=== PATIENT | male | born 1990 | race American Indian/Alaskan Native ===

== ENCOUNTER 2017-11-10 11:16 | Day surgery (SDC) | payer MEDICAID ==
[~2017-11-10 11:16] MED LIST: ANCEF/STERILE WATER 2 GM/20 ML IV NR
[2017-11-10] MEDS ORDERED: NACL BACTERIOSTATIC INFILTRATI ONE (11:39)
[2017-11-10] MEDS ORDERED: DILAUDID IV PRN (11:42)
[2017-11-10] MEDS ORDERED: ZOFRAN IV PRN (11:42)
--- NOTE | 2017-11-10 11:42 | Anesthesia Consultation ---
Anesthesia Consult and Med Hx - Airway Anesthetic Teeth Evaluation: Good ROM Head & Neck: Adequate Mental/Hyoid Distance: Adequate Mallampati Class: Class II Intubation Access Assessment: Good - Pulmonary Exam CTA: Yes - Cardiac Exam Cardiac Exam: RRR - Pre-Operative Health Status ASA Pre-Surgery Classification: ASA2 Proposed Anesthetic Plan: General, MAC - Pulmonary Hx Smoking: Yes (since 14 y.o., cigarretts, black and mild, quit 05/2017) - Central Nervous System Hx Psychiatric Problems: Yes - Other Systems Hx Cancer: No
--- NOTE | 2017-11-10 11:42 | Anesthesia Day of Surgery ---
Anesthesia Day of Surgery - Day of Surgery Patient Examined: Yes Patient H&P Reviewed: Yes Patient is NPO: Yes
[2017-11-10] MEDS ORDERED: VERSED IV NR (12:00)
[2017-11-10] MEDS ORDERED: NACL 0.9% 1000 ML 1,000 ML IV SCH (12:00)
[2017-11-10] MEDS ORDERED: SUBLIMAZE ONE (13:11)
[2017-11-10] MEDS ORDERED: DIPRIVAN 10 MG/ML IV ONE ×2 (13:11→13:42)
[2017-11-10] MEDS ORDERED: XYLOCAINE CARDIAC IV ONE (13:14)
[2017-11-10] MEDS ORDERED: XYLOCAINE 1%/ EPI 1:100,000 INFILTRATI ONE ×2 (13:19→13:46)
[2017-11-10] MEDS ORDERED: MARCAINE 0.25% INFILTRATI ONE ×2 (13:20→13:46)
[2017-11-10] MEDS ORDERED: VERSED ONE (13:30)
[2017-11-10] MEDS ORDERED: NEO SYNEPHRINE/NS Syringe(OR USE) IV ONE (13:56)
[2017-11-10] MEDS ORDERED: NACL 0.9% IR ONE (13:59)
--- NOTE | 2017-11-10 14:05 | Post Operative Note ---
Pre-op diagnosis: soft tissue mass scalp Post-op diagnosis: same Findings: 2cmzx 2.5 cm shauna cyst Procedure: Exc STM scalp Anesthesia: MAC Surgeon: HORACIO NGUYEN Estimated blood loss: minimal Pathology: list (shauna cyst) Specimen disposition: to lab Condition: stable Disposition: PACU
--- NOTE | 2017-11-10 14:06 | Post Anesthesia Evaluation ---
- Post Anesthesia Evaluation Patient Participated: Yes Airway Patent: Yes Stable Respiratory Function: Yes Nausea/Vomiting: No Temp > 96.8F: Yes Pain Manageable: Yes Adequeate Hydration: Yes Anesthesia Complications: No Block Receding Appropriately: Not Applicable
--- NOTE | 2017-11-10 14:07 | Discharge Summary ---
Short Stay Discharge Plan Weight Bearing Status: Full Weight Bearing Diet: regular Wound: open to air Follow up with: SADE RITCHIE [Primary Care Provider] - 7 Days Prescriptions: HYDROcodone/ACETAMINOPHEN [Hydrocodon-Acetaminophen 5-325] 1 each PO Q4HR PRN # 20 tablet PRN Reason: Pain
[2017-11-10] MEDS ORDERED: NORCO 5/325 PO PRN (14:25)
--- NOTE | 2017-11-10 14:35 | Operative Report ---
PREOPERATIVE DIAGNOSIS: Soft tissue mass, scalp. POSTOPERATIVE DIAGNOSIS: Sebaceous cyst to the scalp. OPERATIVE PROCEDURE: Excision of sebaceous cyst. ANESTHESIA: Local 1% Xylocaine, 0.25% Marcaine, and IV sedation. INDICATIONS: A 27-year-old male patient presenting with a symptomatic visible and palpable mass in the scalp at the occipitoparietal area on the right side. FINDINGS: Subcutaneous sebaceous cyst measuring 2 cm x 2.5 cm. It has sebaceous material, but there is no infection. DESCRIPTION OF PROCEDURE: After satisfactory IV sedation, the operative area of the head was clipped then prepped and draped. Local anesthetic was infiltrated. A 2 cm incision was made. The thick scalp skin was divided achieving hemostasis by cautery. The cyst was completely removed. Minimal amount of sebaceous cyst escaped. After removing the cyst, it was irrigated with saline solution. It was closed in 2 layers with 3-0 Vicryl and 4-0 Monocryl sutures. He tolerated the procedure well. JOB# [id number] ERWIN/JAGUAR
--- NOTE | 2017-11-10 14:49 | Post Anesthesia Evaluation ---
- Post Anesthesia Evaluation Patient Participated: Yes Airway Patent: Yes Stable Respiratory Function: Yes Nausea/Vomiting: No Temp > 96.8F: Yes Pain Manageable: Yes Adequeate Hydration: Yes Anesthesia Complications: No
[2017-11-10 15:12] VITALS: BP 126/75
== END 2017-11-10 15:45 | disposition home or self-care (01) ==
LOC: OR 11:16
PROVIDERS: ATTEND Surgery
DX: L72.3 Sebaceous cyst (principal); F31.9 Bipolar disorder, unspecified; Z87.891 Personal history of nicotine dependence
CPT/HCPCS: 11423; 88304; J0690; J2001; J2250; J2370; J2704; J3010; J7030; 88305

== ENCOUNTER 2020-01-09 11:51 | Emergency (ER) | payer MEDICAID ==
[2020-01-09] MEDS ORDERED: LIDOCAINE VISCOUS 2% 15 ML ORAL LIQD PO ONE (13:28)
[2020-01-09] MEDS ORDERED: FAMOTIDINE 20 MG TAB PO ONE (13:28)
[2020-01-09] MEDS ORDERED: CYCLOBENZAPRINE 10 MG TAB PO ONE (13:28)
--- NOTE | 2020-01-09 13:31 | Emergency Department Report ---
ED Chest Pain HPI - General Chief Complaint: Anxiety Stated Complaint: CHON, CHEST PAIN Time Seen by Provider: 01/09/20 12:38 Source: patient Mode of arrival: Ambulatory Limitations: No Limitations - History of Present Illness Initial Comments: 29-year-old male with a past medical history of anxiety and depression presents to the ER today complaining of central upper chest pressure, as well as the sensation like something is choking him in his throat. He states that the symptoms have been going on for 1.5 months. He states that they are every day. He also reports associated shortness of breath which is at rest and on exertion. He denies any associated nausea, vomiting, diaphoresis, abdominal pain, cough, fever, chills or wheezing. He denies any difficulty swallowing, difficulty opening his mouth or drooling. Patient was seen here on December 30 for somewhat similar symptoms. At the time he had a full work-up including a negative d-dimer and troponin. Patient was diagnosed with anxiety reaction and prescribe Atarax. Patient states that when he was here December 30 he was having paresthesias to the upper extremity as well as upper extremity spasms and he was having problems sleeping and having hallucinations with the symptoms has since resolved since he has been taking the Atarax. He states the main thing that seems to persist is this pressure in his upper central chest up into his throat and this choking sensation in throat. He states he has a psychiatrist at [facility] but states he has had a difficult time getting a hold of anyone in the office since the COVID 19 pandemic. Patient states that he supposed to be on Zoloft, but he admits that he has been noncompliant with it because he states it makes him feel funny. He has been compliant with taking the Atarax. He denies any suicidal or homicidal ideations. He denies any alcohol abuse or illicit drug use. MD Complaint: chest pain, other ("choking" sensation in throat) -: month(s) (1.5mths ) - Related Data Home Medications Medication Instructions Recorded Confirmed Last Taken Valacyclovir HCl [Valtrex] 1,000 mg PO DAILY 11/05/17 11/10/17 11/07/17 Ascorbic Acid [Vitamin C] 1,000 mg PO DAILY 11/10/17 11/10/17 11/07/17 Previous Rx's Medication Instructions Recorded Last Taken Type hydrOXYzine PAMOATE [Vistaril] 50 mg PO Q6HR PRN #20 capsule 12/31/19 Unknown Rx Cyclobenzaprine [Flexeril] 10 mg PO TID PRN #30 tablet 01/09/20 Unknown Rx Famotidine [Pepcid] 20 mg PO BID #30 tablet 01/09/20 Unknown Rx Allergies Allergy/AdvReac Type Severity Reaction Status Date / Time No Known Allergies Allergy Verified 11/05/17 11:17 Heart Score - HEART Score History: Slightly suspicious EKG: Normal Age: < 45 Risk factors: No known risk factors Troponin: < normal limit HEART Score: 0 ED Review of Systems ROS: Stated complaint: CHON, CHEST PAIN Other details as noted in HPI Constitutional: denies: chills, fever ENT: other (Choking sensation in the throat). denies: ear pain, throat pain, dental pain, hearing loss, epistaxis, congestion Respiratory: SOB with exertion, SOB at rest. denies: cough, shortness of breath, wheezing Cardiovascular: chest pain. denies: palpitations, dyspnea on exertion, orthopnea, edema, syncope, paroxysmal nocturnal dyspnea, other Gastrointestinal: denies: abdominal pain, nausea, diarrhea Genitourinary: denies: urgency, dysuria Skin: denies: rash, lesions Neurological: denies: headache, weakness, paresthesias Psychiatric: anxiety, depression. denies: auditory hallucinations, visual hallucinations, homicidal thoughts, suicidal thoughts ED Past Medical Hx - Past Medical History Previous Medical History?: Yes Hx Psychiatric Treatment: Yes (depression and anxiety) Hx HIV: No Additional medical history: HSV-2 - Social History Smoking Status: Never Smoker Substance Use Type: None - Medications Home Medications: Home Medications Medication Instructions Recorded Confirmed Last Taken Type Valacyclovir HCl [Valtrex] 1,000 mg PO DAILY 11/05/17 11/10/17 11/07/17 History Ascorbic Acid [Vitamin C] 1,000 mg PO DAILY 11/10/17 11/10/17 11/07/17 History hydrOXYzine PAMOATE [Vistaril] 50 mg PO Q6HR PRN #20 capsule 12/31/19 Unknown Rx Cyclobenzaprine [Flexeril] 10 mg PO TID PRN #30 tablet 01/09/20 Unknown Rx Famotidine [Pepcid] 20 mg PO BID #30 tablet 01/09/20 Unknown Rx ED Physical Exam - General Limitations: No Limitations General appearance: alert, in no apparent distress - Head Head exam: Present: atraumatic, normocephalic, normal inspection - Eye Eye exam: Present: normal appearance Pupils: Present: normal accommodation - ENT ENT exam: Present: normal orophraynx, mucous membranes moist - Neck Neck exam: Present: normal inspection, full ROM. Absent: tenderness, meningismus, lymphadenopathy - Respiratory Respiratory exam: Present: normal lung sounds bilaterally. Absent: respiratory distress - Cardiovascular Cardiovascular Exam: Present: regular rate, normal rhythm. Absent: systolic murmur, diastolic murmur, rubs, gallop - GI/Abdominal GI/Abdominal exam: Present: soft. Absent: tenderness - Neurological Exam Neurological exam: Present: alert, oriented X3 - Psychiatric Psychiatric exam: Present: agitated (mild), anxious (mild), flat affect, other. Absent: suicidal ideation - Skin Skin exam: Present: intact ED Course Vital Signs 01/09/20 11:56 Temperature 98.6 F Pulse Rate 97 H Respiratory 18 Rate Blood Pressure 145/82 O2 Sat by Pulse 100 Oximetry ED Medical Decision Making - EKG Data EKG shows normal: sinus rhythm Rate: normal - EKG Data When compared to previous EKG there are: no significant change Interpretation: no acute changes, normal EKG - Radiology Data Radiology results: report reviewed Findings [address] [address] XRay Report Signed Patient: BLANCO UMAÑA MR#: [id number] 6 : 1990 Acct:[id number] Age/Sex: 29 / M ADM Date: 01/09/20 Loc: ED Attending Dr: Ordering Physician: THERESA SRIVASTAVA Date of Service: 01/09/20 Procedure(s): XR neck soft tissue Accession Number(s): [id number] cc: THERESA SRIVASTAVA Fluoro Time In Minutes: SOFT TISSUE NECK HISTORY: Upper chest pain, choking sensation in throat. COMPARISON: None. TECHNIQUE: AP and lateral view(s) of the neck obtained. FINDINGS: Epiglottis: No significant abnormality. Airway: No significant abnormality. Retropharyngeal soft tissues: No significant abnormality. Bones: No significant abnormality. Additional findings: None. IMPRESSION: 1. No significant abnormality. Signer Name: Bruno Malhotra MD Signed: 01/09/2020 3:05 PM Workstation Name: [id number] Transcribed By: MALVIN Dictated By: Bruno Malhotra MD Electronically Authenticated By: Bruno Malhotra MD Signed Date/Time: 01/09/20 150 DD/ 150 TD/TT: Findings [facility] [address] [place] [address] XRay Report Signed Patient: BLANCO UMAÑA MR#: [id number] 6 : 1990 Acct:[id number] Age/Sex: 29 / M ADM Date: 01/09/20 Loc: ED Attending Dr: Ordering Physician: THERESA SRIVASTAVA Date of Service: 01/09/20 Procedure(s): XR chest routine 2V Accession Number(s): [id number] cc: THERESA SRIVASTAVA Fluoro Time In Minutes: CHEST 2 VIEWS INDICATION / CLINICAL INFORMATION: Upper chest pain. COMPARISON: Chest x-ray on 12/31/2019 FINDINGS: SUPPORT DEVICES: None. HEART / MEDIASTINUM: No significant abnormality. LUNGS / PLEURA: No significant pulmonary or pleural abnormality. No pneumothorax. ADDITIONAL FINDINGS: No significant additional findings. IMPRESSION: 1. No acute findings. Signer Name: Bruno Malhotra MD Signed: 01/09/2020 3:05 PM Workstation Name: [id number] Transcribed By: MALVIN Dictated By: Bruno Malhotra MD Electronically Authenticated By: Bruno Malhotra MD Signed Date/Time: 01/09/201504 DD/ 150 TD/TT: - Medical Decision Making Patient presents with c/o pressure in upper central chest into throat and also choking sensation in throat. This has being going on x 1.5 mths. He also reports SOB at rest and on exertion with this pressure which has also been going on since then. Patient was seen her 9 days ago for similar symptoms, at that time he was also have UE spasms and numbness and difficulty sleeping and some hallucinations but he states these have since resolved since he was seen 9 days ago. He states this choking sensation and upper chest pressure is persistent. He states its not any worse today. Patient does have a history of anxiety and depression and he does admit that he has had increased stressors lately. He denies any suicidal homicidal ideation. He denies any hallucinations recently. He states he has been taking the atarax which was prescribed to him on the 9 days ago which helps him sleep but he admits he has not been compliant with his Zoloft. Patient currently resting comfortably. He does not appear to be in any acute pain no respiratory distress. Patient is able to tolerate his secretions. He has no trismus. No swelling noted to the oropharynx. He appears hydrated. He is not toxic. His vital signs are normal. Repeat EKG showed no acute changes. Chest x-ray as well as soft tissue neck x-ray is normal. Patient had a complete work-up 9 days ago for same thing which included as well as a negative d-dimer. I do not believe that patient symptoms at this time is related to acute coronary syndrome (he has negative risk factors), PE (PERC score 0), or peritonsillar retropharyngeal abscess or mass or any other significant cardiopulmonary or ENT etiology requiring further testing, admission or emergent consultation at this time. Plus his symptoms has been ongoing for 1.5 months. exact cause of his symptoms unclear, it could be anxiety related but did recommend he f/u to probably get ENT or GI evaluation. Patient given referral to Dr Bueno since he has been having difficulty getting into his. Patient stable at time of d/c. Critical care attestation.: If time is entered above; I have spent that time in minutes in the direct care of this critically ill patient, excluding procedure time. ED Disposition Clinical Impression: Anxiety, Atypical chest pain Disposition: DC-01 TO HOME OR SELFCARE Is pt being admited?: No Does the pt Need Aspirin: No Condition: Stable Instructions: Chest Pain (ED), Anxiety (ED) Additional Instructions: I recommend that you continue atarax, you can take flexeril with it. I strongly recommend you take you zoloft as prescribed. I also recommend f/u with the PCP given on discharge instructions for further evaluation, treatment and referral to specialist (psychiatrist, ENT/GI (if needed)). If anything changes or worsens return to ED. Prescriptions: Cyclobenzaprine [Flexeril] 10 mg PO TID PRN #30 tablet PRN Reason: Chest Pain Famotidine [Pepcid] 20 mg PO BID #30 tablet Referrals: LISSETH PORTER MD [Staff Physician] - 3-5 Days Time of Disposition: 15:18
--- NOTE | 2020-01-09 15:09 | XRay Report ---
CHEST 2 VIEWS INDICATION / CLINICAL INFORMATION: Upper chest pain. COMPARISON: Chest x-ray on 12/31/2019 FINDINGS: SUPPORT DEVICES: None. HEART / MEDIASTINUM: No significant abnormality. LUNGS / PLEURA: No significant pulmonary or pleural abnormality. No pneumothorax. ADDITIONAL FINDINGS: No significant additional findings. IMPRESSION: 1. No acute findings. Signer Name: Bruno Malhotra MD Signed: 01/09/2020 3:05 PM Workstation Name: [id number]
--- NOTE | 2020-01-09 15:10 | XRay Report ---
SOFT TISSUE NECK HISTORY: Upper chest pain, choking sensation in throat. COMPARISON: None. TECHNIQUE: AP and lateral view(s) of the neck obtained. FINDINGS: Epiglottis: No significant abnormality. Airway: No significant abnormality. Retropharyngeal soft tissues: No significant abnormality. Bones: No significant abnormality. Additional findings: None. IMPRESSION: 1. No significant abnormality. Signer Name: Bruno Malhotra MD Signed: 01/09/2020 3:05 PM Workstation Name: [id number]
[2020-01-10 13:21] VITALS: BP 145/82
== END 2020-01-09 15:35 | disposition home or self-care (01) ==
LOC: ED 11:51
DX: F41.9 Anxiety disorder, unspecified (principal); R07.89 Other chest pain; F32.9 Major depressive disorder, single episode, unspecified; Z79.899 Other long term (current) drug therapy
CPT/HCPCS: 70360; 71046; 93005; 99283

== ENCOUNTER 2020-02-01 09:09 | Outpatient (CLI) | payer MEDICAID ==
--- NOTE | 2020-02-07 13:30 | Pulmonary Function Test ---
SPIROMETRY: FVC is 8.48 liters, which is 131% of the predicted. FEV1 is 5.29 liters, which is 128% of the predicted. FEV1/FVC ratio is 97 and the FEV6 is 8.30, which is 121% of the predicted. FEF 25-75% is 5.29, 121% of the predicted. IMPRESSION: Normal spirometry. JOB# [id number] RSM/NTS
== END 2020-02-01 09:10 | disposition home or self-care (01) ==
LOC: PF 09:09
PROVIDERS: ATTEND Internal Medicine
DX: J45.909 Unspecified asthma, uncomplicated (principal)
CPT/HCPCS: 94010

== ENCOUNTER 2022-04-20 15:09 | Emergency (ER) | payer MEDICAID ==
--- NOTE | 2022-04-20 15:41 | Emergency Department Report ---
Blank Doc - Documentation Documentation: 31-year-old male that presents with dizziness, cough, congestion and left-sided numbness and tingling sensation x2 days. Physical exam does not show strokelike symptoms. No one-sided weakness. 1- This is a initial triage assessment/medical screening only. Full assessment and work-up will be completed once the patient is in proper hospital gown, ED bed and in a private room setting. This initial assessment/diagnostic orders/clinical plan/ treatment(s) is/are subject to change based on pt's health status, clinical progression and re-assessment by fellow clinical providers in the ED. Further treatment and workup at subsequent clinical providers discretion. Patient/guardians urged not to elope from ED as their condition may be serious if not clinically assessed and managed. 2-labs 3-EKG 4-CXR The patient was evaluated in the emergency department for symptoms described in the history of present illness. He/she was evaluated in the context of the global COVID-19 pandemic, which necessitated consideration that the patient might be at risk for infection with the virus that causes COVID-19. Institutional protocols and algorithms that pertain to the evaluation of patients at risk for COVID-19 are in a state of rapid change based on information released by regulatory bodies including the CDC and federal and state organizations. These policies and algorithms were followed during the patient's care in the emergency department. Please note that these policies, procedures and recommendations changed on a rapid basis.
[2022-04-20 16:30] LABS: Alanine Aminotransferase 18 units/L (7-56); Albumin 4.4 g/dL (3.9-5); BUN/Creatinine Ratio 13; Blood Urea Nitrogen 14 mg/dL (9-20); Calcium 8.7 mg/dL (8.4-10.2); Hemolysis Index 12
[2022-04-20 17:09] LABS: Hematocrit 47.6 % (35.5-45.6); Hemoglobin 15.5 gm/dl (11.8-15.2); Mean Corpuscular HGB Conc 33 % (32-34); Mean Corpuscular Volume 92 fl (84-94); Platelet Count 179 K/mm3 (140-440); Red Blood Count 5.18 M/mm3 (3.65-5.03); Red Cell Distribution Width 13.9 % (13.2-15.2)
--- NOTE | 2022-04-20 17:35 | XRay Report ---
CHEST 2 VIEWS INDICATION / CLINICAL INFORMATION: Lightheadedness/Dizziness. COMPARISON: 03/07/2020 FINDINGS: SUPPORT DEVICES: None. HEART / MEDIASTINUM: No significant abnormality. LUNGS / PLEURA: No significant pulmonary or pleural abnormality. No pneumothorax. ADDITIONAL FINDINGS: No significant additional findings. IMPRESSION: 1. No acute findings. Signer Name: Lul Varghese MD Signed: 04/20/2022 5:31 PM Workstation Name: [employer]
[2022-04-20 18:25] LABS: Basophils % (Manual) 0 % (0.0-1.8); Eosinophils % (Manual) 0 % (0.0-4.3); Total Cells Counted 100
[2022-04-20 18:26] LABS: Platelet Estimate Consistent w Auto; RBC Morphology Normal
[2022-04-20] MEDS ORDERED: IBUPROFEN 600 MG TAB PO ONE (20:53)
[2022-04-20] MEDS ORDERED: ACETAMINOPHEN 500 MG TAB PO ONE (20:53)
[2022-04-20 21:43] LABS: Mucus,Urine 3+ /HPF
--- NOTE | 2022-04-20 21:48 | Emergency Department Report ---
- General Chief Complaint: Upper Respiratory Infection Stated Complaint: POSS COVID/COUGH Time Seen by Provider: 04/20/22 15:31 Source: patient Mode of arrival: Ambulatory Limitations: No Limitations - History of Present Illness Initial Comments: Patient is a 31-year-old -Iraqi male with a history of anxiety, depression and hypertension who presents to the ED with complaint of acute onset persistent diffuse body aches and pains, headache, nasal and sinus congestion, s ore throat, for the last subjective fever and chills, lack of appetite, generalized weakness and lightheadedness for 1 week. Patient states that he tested positive for COVID-19 viral infection 2 days ago. Patient states that in the last 12 hours, his symptoms have worsened. Patient denies dizziness, syncope, chest pain, shortness of breath, nausea and vomiting, diarrhea, abdominal pain, dysuria, urinary frequency and urgency, change in vision, neck pain or testicular pain or hematuria. MD Complaint: cough, rhinorrhea, nasal congestion, sinus pain -: week(s) (1) Severity: severe Severity scale (0 -10): 7 Quality: sharp, aching Consistency: constant Improves With: nothing Worsens With: nothing Context: other (Tested positive for COVID-19 viral infection 2 days ago) Associated Symptoms: denies other symptoms, fever, chills, myalgias, headache, rhinorrhea, nasal congestion, sore throat, cough, other (Diffuse body aches and pains). denies: stiff neck, chest pain, shortness of breath, abdominal pain, nausea, vomiting, diarrhea, dysuria, rash, confusion, right sweats, weight loss, epistaxis, ear pain Treatments Prior to Arrival: none - Related Data Home Medications Medication Instructions Recorded Confirmed Last Taken Valacyclovir HCl [Valtrex] 1,000 mg PO DAILY 11/05/17 11/10/17 11/07/17 Ascorbic Acid [Vitamin C] 1,000 mg PO DAILY 11/10/17 11/10/17 11/07/17 Previous Rx's Medication Instructions Recorded Last Taken Type hydrOXYzine PAMOATE [Vistaril] 50 mg PO Q6HR PRN #20 capsule 12/31/19 Unknown Rx Cyclobenzaprine [Flexeril] 10 mg PO TID PRN #30 tablet 01/09/20 Unknown Rx Famotidine [Pepcid] 20 mg PO BID #30 tablet 01/09/20 Unknown Rx Naproxen 500 mg PO Q12H PRN #20 tablet 03/07/20 Unknown Rx Acetaminophen [Tylenol] 500 mg PO Q6HR PRN #30 tablet 04/20/22 Unknown Rx Ascorbic Acid [Vitamin C] 1,000 mg PO BID #30 tab 04/20/22 Unknown Rx Azithromycin [Zithromax Z-TYSON] 250 mg PO DAILY #6 tab 04/20/22 Unknown Rx Benzonatate [Tessalon Perles] 100 mg PO Q8HR #30 cap 04/20/22 Unknown Rx Cetirizine HCl [Zyrtec 10mg tab] 10 mg PO DAILY #30 tab 04/20/22 Unknown Rx Ibuprofen [Motrin] 600 mg PO Q8H PRN #30 tablet 04/20/22 Unknown Rx Ondansetron [Zofran Odt] 4 mg PO Q8HR PRN #15 tab.rapdis 04/20/22 Unknown Rx Allergies Allergy/AdvReac Type Severity Reaction Status Date / Time No Known Allergies Allergy Verified 03/07/20 11:20 ED Review of Systems ROS: Stated complaint: POSS COVID/COUGH Other details as noted in HPI Constitutional: chills, fever, malaise, weakness Eyes: denies: eye pain, eye discharge, vision change ENT: throat pain, congestion. denies: ear pain Respiratory: cough. denies: shortness of breath, wheezing Cardiovascular: denies: chest pain, palpitations, dyspnea on exertion, edema, syncope, paroxysmal nocturnal dyspnea Endocrine: no symptoms reported Gastrointestinal: denies: abdominal pain, nausea, vomiting, diarrhea Genitourinary: denies: urgency, dysuria Musculoskeletal: arthralgia, myalgia. denies: back pain, joint swelling Skin: denies: rash, lesions Neurological: headache. denies: weakness, paresthesias Psychiatric: denies: anxiety, depression Hematological/Lymphatic: denies: easy bleeding, easy bruising ED Past Medical Hx - Past Medical History Hx Hypertension: Yes (diet controlled) Hx Psychiatric Treatment: Yes (depression and anxiety) Hx HIV: No Additional medical history: HSV-2 - Social History Smoking Status: Never Smoker - Medications Home Medications: Home Medications Medication Instructions Recorded Confirmed Last Taken Type Valacyclovir HCl [Valtrex] 1,000 mg PO DAILY 11/05/17 11/10/17 11/07/17 History Ascorbic Acid [Vitamin C] 1,000 mg PO DAILY 11/10/17 11/10/17 11/07/17 History hydrOXYzine PAMOATE [Vistaril] 50 mg PO Q6HR PRN #20 capsule 12/31/19 Unknown Rx Cyclobenzaprine [Flexeril] 10 mg PO TID PRN #30 tablet 01/09/20 Unknown Rx Famotidine [Pepcid] 20 mg PO BID #30 tablet 01/09/20 Unknown Rx Naproxen 500 mg PO Q12H PRN #20 tablet 03/07/20 Unknown Rx Acetaminophen [Tylenol] 500 mg PO Q6HR PRN #30 tablet 04/20/22 Unknown Rx Ascorbic Acid [Vitamin C] 1,000 mg PO BID #30 tab 04/20/22 Unknown Rx Azithromycin [Zithromax Z-TYSON] 250 mg PO DAILY #6 tab 04/20/22 Unknown Rx Benzonatate [Tessalon Perles] 100 mg PO Q8HR #30 cap 04/20/22 Unknown Rx Cetirizine HCl [Zyrtec 10mg tab] 10 mg PO DAILY #30 tab 04/20/22 Unknown Rx Ibuprofen [Motrin] 600 mg PO Q8H PRN #30 tablet 04/20/22 Unknown Rx Ondansetron [Zofran Odt] 4 mg PO Q8HR PRN #15 tab.rapdis 04/20/22 Unknown Rx ED Physical Exam - General Limitations: No Limitations General appearance: alert, in no apparent distress - Head Head exam: Present: atraumatic, normocephalic, normal inspection - Eye Eye exam: Present: normal appearance, PERRL, EOMI Pupils: Present: normal accommodation - ENT ENT exam: Present: mucous membranes moist, TM's normal bilaterally, normal external ear exam, other (Grossly congested nasal passages) - Neck Neck exam: Present: normal inspection, full ROM. Absent: tenderness, lymphadenopathy, thyromegaly - Respiratory Respiratory exam: Present: normal lung sounds bilaterally. Absent: respiratory distress, wheezes, rales, rhonchi, stridor, chest wall tenderness, accessory muscle use, decreased breath sounds, prolonged expiratory, other - Cardiovascular Cardiovascular Exam: Present: regular rate, normal rhythm, normal heart sounds. Absent: systolic murmur, diastolic murmur, rubs, gallop - GI/Abdominal GI/Abdominal exam: Present: soft, normal bowel sounds. Absent: tenderness, guarding, rebound, hyperactive bowel sounds, hypoactive bowel sounds, organomegaly, bruit - Extremities Exam Extremities exam: Present: normal inspection, full ROM, normal capillary refill. Absent: tenderness - Back Exam Back exam: Present: normal inspection, full ROM. Absent: tenderness, CVA tenderness (R), CVA tenderness (L), muscle spasm, paraspinal tenderness, vertebral tenderness - Neurological Exam Neurological exam: Present: alert, oriented X3, CN II-XII intact, normal gait, reflexes normal - Psychiatric Psychiatric exam: Present: normal affect, normal mood, anxious - Skin Skin exam: Present: warm, dry, intact, normal color. Absent: rash ED Course Vital Signs 04/20/22 15:33 Temperature 98.4 F Pulse Rate 96 H Respiratory 14 Rate Blood Pressure 121/83 O2 Sat by Pulse 97 Oximetry ED Medical Decision Making - Lab Data Result diagrams: 04/20/22 15:48 04/20/22 15:48 - Radiology Data Radiology results: report reviewed, image reviewed [facility] [address] [place] [address] XRay Report Signed Patient: BLANCO UMAÑA MR#: [id number] 6 : 1990 Acct:[id number] Age/Sex: 31 / M ADM Date: 04/20/22 Loc: ED Attending Dr: Ordering Physician: SARAH TORREZ NP Date of Service: 04/20/22 Procedure(s): XR chest routine 2V Accession Number(s): [id number] cc: SARAH TORREZ NP Fluoro Time In Minutes: CHEST 2 VIEWS INDICATION / CLINICAL INFORMATION: Lightheadedness/Dizziness. COMPARISON: 03/07/2020 FINDINGS: SUPPORT DEVICES: None. HEART / MEDIASTINUM: No significant abnormality. LUNGS / PLEURA: No significant pulmonary or pleural abnormality. No pneumothorax. ADDITIONAL FINDINGS: No significant additional findings. IMPRESSION: 1. No acute findings. Signer Name: Yolanda Romo MD Signed: 04/20/2022 5:31 PM Workstation Name: [id number] Transcribed By: JW Dictated By: YOLANDA ROMO MD Electronically Authenticated By: YOLANDA ROMO MD Signed Date/Time: 04/20/221730 DD/ 30 TD/TT: - Medical Decision Making This is a 31-year-old -Iraqi male with a history of anxiety, depression and hypertension who presents to the ED with complaint of acute onset persistent diffuse body aches and pains, headache, nasal and sinus congestion, sore throat, for the last subjective fever and chills, lack of appetite, generalized weakness and lightheadedness for 1 week. Patient states that he tested positive for COVID-19 viral infection 2 days ago. Patient states that in the last 12 hours, his symptoms have worsened. In the ED, patient is alert and oriented x3 and is not in any distress. Patient was treated for pain in the ED. All lab test results were reviewed and are all nonactionable. Chest x-ray showed no acute cardiopulmonary abnormalities or pneumonitis. Given the fact the patient already tested positive for COVID-19 viral infection 2 days ago, patient was discharged home on medications and advised to follow-up with his primary care physician in 5 to 7 days for reevaluation. Patient was also advised to self quarantine at home for 5 days while taking medications. Patient was advised to return to the ED immediately if symptoms get worse. - Differential Diagnosis URI; COVID-19; bronchitis; pneumonia; strep pharyngitis; Critical care attestation.: If time is entered above; I have spent that time in minutes in the direct care of this critically ill patient, excluding procedure time. ED Disposition Clinical Impression: Upper respiratory tract infection due to COVID-19 virus, Acute bronchitis due to COVID-19 virus Disposition: 01 HOME / SELF CARE / HOMELESS Is pt being admited?: No Does the pt Need Aspirin: No Condition: Stable Instructions: Acute Bronchitis (ED), Upper Respiratory Infection, Adult, [id number], COVID-19 Frequently Asked Questions, Cough, Adult, [id number], Acute Bronchitis, Adult, [id number], COVID-19: How to Protect Yourself and Others - [facility] Additional Instructions: All lab test results were reviewed and are all nonactionable. Chest x-ray showed no acute cardiopulmonary abnormalities or pneumonitis. Therefore your symptoms are likely due to your recently documented COVID-19 viral infection. Therefore take medication with food, self quarantine at home for 5 days while taking medications and doing plenty of fluids. Follow-up with your primary care physician in 7 to 10 days for reevaluation. Return to the ED immediately if symptoms get worse. Prescriptions: Acetaminophen [Tylenol] 500 mg PO Q6HR PRN #30 tablet PRN Reason: Pain or fever Ibuprofen [Motrin] 600 mg PO Q8H PRN #30 tablet PRN Reason: Pain Benzonatate [Tessalon Perles] 100 mg PO Q8HR #30 cap Ascorbic Acid [Vitamin C] 1,000 mg PO BID #30 tab Azithromycin [Zithromax Z-TYSON] 250 mg PO DAILY #6 tab Ondansetron [Zofran Odt] 4 mg PO Q8HR PRN #15 tab.rapdis PRN Reason: Nausea Cetirizine HCl [Zyrtec 10mg tab] 10 mg PO DAILY #30 tab Referrals: [facility] [Provider Group] - 7-10 days Forms: Work/School Release Form(ED) Time of Disposition: 21:54 Print Language: CAMBODIAN
[2022-04-20 21:51] LABS: Color,Urine Yellow (Yellow)
[2022-04-20 22:07] LABS: Amphetamine Screen,Urine Negative; Benzodiazepines Screen,Urine Negative; Cannabinoid Screen,Urine Negative; Cocaine Screen,Urine Negative; Methadone Screen,Urine Negative; Opiate Screen,Urine Negative
[2022-04-20 23:23] VITALS: BP 127/84
--- NOTE | 2022-04-22 13:54 | Electrocardiograph Report ---
[facility] Test Date: 2022-04-20 Test Time: 15:39:58 Pat Name: BLANCO UMAÑA Department: Room: Gender: M Cycling Instructor: CHARLIE : 1990 Requested By: SARAH TORREZ Order Number: [id number] Reading MD: Wilberto Cisneros Measurements Intervals [place] Rate: 88 P: 76 VT: 173 QRS: 69 QRSD: 99 T: 49 QT: 347 QTc: 421 Interpretive Statements Sinus rhythm Normal ECG No previous ECG available for comparison Electronically Signed On 04-22-2022 13:54:35 EDT by Wilberto Cisneros
== END 2022-04-20 23:23 | disposition home or self-care (01) ==
LOC: ED 15:09
DX: U07.1 COVID-19 (principal); J06.9 Acute upper respiratory infection, unspecified; I10 Essential (primary) hypertension; Z79.899 Other long term (current) drug therapy; J02.8 Acute pharyngitis due to other specified organisms
CPT/HCPCS: 36415; 71046; 80053; 80307; 80320; 81001; 84484; 85007; 85025; 93005; 99283; 99284; G0480